=== PATIENT | male | born 1985 | race Caucasian/White ===

== ENCOUNTER 2018-06-27 13:36 | Emergency (ER) | payer SELFPAY ==
[~2018-06-27] VITALS: Ht 188 cm; Wt 59.0 kg
[2018-06-27 13:48] VITALS: BP 118/83
--- NOTE | 2018-06-27 14:22 | RAD ---
3 views left hand 06/27/2018 1:53 PM Indication: PAIN AND SWELLING IN 4TH DIGIT X 1 WEEK
NO KNOWN INJURY Comparison: None Findings: There is diffuse soft tissue swelling involving the fourth finger. No fracture or dislocation is seen. No erosive or hypertrophic changes are identified. No radiopaque foreign bodies are appreciated. IMPRESSION: Diffuse soft tissue edema involving the fourth finger without radiographic evidence of acute osseous abnormality Electronically signed by: Agustin Odell MD (06/27/2018 2:18 PM) [facility]
[2018-06-27] MEDS ORDERED: LIDOCAINE 1% Multi-Dose 20 ML VIAL. INJ ONE (14:45)
[2018-06-27] MEDS ORDERED: CEPH-264 PO (15:18)
[2018-06-27] MEDS ORDERED: TRAM50TA PO (15:18)
--- NOTE | 2018-06-27 15:19 | PHYS DOC ---
Past Medical History Past Medical History: Bipolar, IBS Past Surgical History: No Surgical History Alcohol Use: None Drug Use: None Adult General Chief Complaint Chief Complaint: OTHER COMPLAINTS HPI HPI Patient is a 32 year old male who presents with an infection to his fourth left finger tip. The patient denies any known injury. He states that it is been gradually swelling and getting more painful over the past week. Nothing is mitigating the symptoms. Review of Systems Review of Systems Constitutional: Denies fever or chills [] Respiratory: Denies cough or shortness of breath [] Cardiovascular: No additional information not addressed in HPI [] GI: Denies abdominal pain, nausea, vomiting, bloody stools or diarrhea [] : Denies dysuria or hematuria [] Musculoskeletal: See history of present illness Integument: Denies rash or skin lesions [] Neurologic: Denies headache, focal weakness or sensory changes [] Endocrine: Denies polyuria or polydipsia [] All other systems were reviewed and found to be within normal limits, except as documented in this note. Current Medications Current Medications Current Medications Medications (Trade) Dose Ordered Sig/Sandeep Start Time Stop Time Status Last Admin Dose Admin Lidocaine HCl (Lidocaine 1% 20ml Vial) 20 ml 1X ONCE 06/27/18 14:45 06/27/18 14:59 DC 06/27/18 14:45 20 ML Allergies Allergies Allergies Coded Allergies Type Severity Reaction Last Updated Verified No Known Drug Allergies 06/27/18 No Physical Exam Physical Exam Constitutional: Well developed, well nourished, no acute distress, non-toxic appearance. [] Cardiovascular:Heart rate regular rhythm, no murmur [] Lungs & Thorax: Bilateral breath sounds clear to auscultation [] Abdomen: Bowel sounds normal, soft, no tenderness, no masses, no pulsatile masses. [] Skin: Warm, dry, no erythema, no rash. [] Back: No tenderness, no CVA tenderness. [] Extremities: tenderness to left fourth fingertip with a pus pool noted, no cyanosis, no clubbing, ROM decreased due to pain, mild edema. [] Neurologic: Alert and oriented X 3, normal motor function, normal sensory function, no focal deficits noted. [] Psychologic: Affect normal, judgement normal, mood normal. [] Current Patient Data Vital Signs Vital Signs Date Time Temp Pulse Resp B/P (MAP) Pulse Ox O2 Delivery O2 Flow Rate FiO2 12/10/18 13:48 97.7 86 16 118/83 (95) 100 Room Air 97.7 EKG EKG [] Radiology/Procedures Radiology/Procedures [] Course & Med Decision Making Course & Med Decision Making Pertinent Labs and Imaging studies reviewed. (See chart for details) []The patient's fingertip was attempted to drain with a 16-gauge needle. This was unsuccessful. He was digitally blocked and a scalpel was used to increase the opening. A very small amount of extremely thick purulent matter was expressed from the wound. The patient is to soak the finger to help continue with drainage. He is to take antibiotics orally for this infection. He has been given strict return instructions for worsening. He is in agreement with this plan. Dragon Disclaimer Dragon Disclaimer This electronic medical record was generated, in whole or in part, using a voice recognition dictation system. Departure Departure Impression: Primary Impression: Felon of finger Disposition: 01 HOME, SELF-CARE Condition: STABLE Referrals: UNKNOWN PCP NAME (PCP) Patient Instructions: Fingertip Infections Additional Instructions: Take the medication as directed. Do not drive until you know how you react the pain medication. Follow-up with your primary care provider in 2 days for recheck. If worsening return to the emergency department immediately. Scripts Tramadol Hcl (TRAMADOL HCL) 50 Mg Tablet 50 MG PO Q6HRS PRN for PAIN, #14 TAB Prov: MARK DELONG APRN 06/27/18 Cephalexin (KEFLEX) 500 Mg Capsule 1 CAP PO TID for felon, #30 CAP Prov: MARK DELONG APRN 06/27/18 MARK DELONG APRN Jun 27, 2018 15:19
[2018-06-30] MEDS ORDERED: DICL75TA PO (02:49)
[2018-06-30] MEDS ORDERED: OXYC1TAB15 PO (02:49)
[2018-07-02] MEDS ORDERED: LACT1CAP19 PO (15:04)
[2018-07-02] MEDS ORDERED: LINE600T PO (15:04)
[2018-07-02] MEDS ORDERED: Nicotine 21MG TD (15:04)
[2018-07-02] MEDS ORDERED: TRAM50TA PO (15:04)
== END 2018-06-27 15:25 | disposition home or self-care (01) ==
LOC: ER 13:36
DX: L03.012 Cellulitis of left finger (principal); F31.9 Bipolar disorder, unspecified
CPT/HCPCS: 26011; 73130; 99283; 99284